=== PATIENT | male | born 1965 | race Caucasian/White ===

== ENCOUNTER 2023-09-19 00:08 | Emergency (ER) | payer OTHER, SELFPAY ==
--- NOTE | ~2023-09-19 | XR_ITS ---
EXAMINATION: XR CHEST CLINICAL INFORMATION: Shortness of breath COMPARISON: None available. TECHNIQUE: 2 views of the chest were obtained. FINDINGS: Lung volumes are symmetric. No focal consolidation is seen. Mildly coarsened appearance of the perihilar interstitium. No evidence of pneumothorax, pleural effusion, or overt pulmonary edema. The cardiomediastinal contour is unremarkable. No acute osseous findings are seen. XR/XR chest 2V IMPRESSION: No focal consolidation. Mildly coarsened appearance of the perihilar interstitium may reflect airways disease.
[2023-09-19 00:16] VITALS: BP 148/91; PULSE 88; PULSE 91; RESP 19; O2SAT 100; BMI 35.2
--- NOTE | 2023-09-19 00:16 | ED.GENADULT ---
HPI - General Adult General Chief complaint: Dyspnea Stated complaint: sob Time Seen by Provider: 09/19/23 00:16 History of Present Illness HPI narrative: Patient is a 58-year-old male with a history of type 2 diabetes and a right [id number] amputation comes to the emergency room because he developed shortness of breath at around 14:00 this afternoon. He tried using his brother's inhaler to see if it would help but it did not an ultimately he called an ambulance is brought to the hospital. He does not think he has had a fever although he is felt somewhat hot and sweaty. The patient says that he has only been in this area for a few months after moving here from [place]. He had been living in [place] for a few years. He had his right leg amputation 1 year ago. He says that after he had his leg amputated his left him and so he moved to this area to live with his brother. Related Data Previous Rx's ?Medication ?Instructions ?Recorded budesonide-formoterol HFA 80 1 puff inhalation BID #10.2 grams 09/19/23 mcg-4.5 mcg/actuation aerosol inhaler Allergies Allergy/AdvReac Type Severity Reaction Status Date / Time No Known Allergies Allergy Verified 09/19/23 00:18 Review of Systems Review of Systems: Yes all other systems are reviewed and are negative [facility] Social History Social History Advance Directives: No Advance Directives Information Provided: Yes Physical Exam ED Vital Signs: Vital Signs - 24 hr 09/19/23 00:16 09/19/23 00:19 09/19/23 01:49 Temperature 97.7 F Pulse Rate 88 85 73 Respiratory Rate 19 12 16 Blood Pressure 145/70 H Pulse Oximetry 100 99 Oxygen Delivery Method Room Air Room Air 09/19/23 02:08 Temperature 97.6 F Pulse Rate 81 Respiratory Rate 12 Blood Pressure 135/70 Pulse Oximetry 97 Oxygen Delivery Method Room Air BMI result Body Mass Index 35.2 Const Other: The patient is a somewhat unkempt, chronically ill-appearing 58-year-old male who was awake and alert and does not seem in obvious distress. He does not seem in acute pain or obvious shortness breath. No increased work of breathing. HENMT Other: Face is symmetrical, mucous membranes moist Eyes Other: Pupils are round equal, conjunctivae clear Neck Other: No JVD Resp Other: Breath sounds seem fairly clear bilaterally. No definite crackles or wheeze. Cardio Rate: regular rate Rhythm: regular rhythm Heart sounds: S1 normal heart sound present and S2 normal heart sound present GI Other: Abdomen is soft and nontender Skin Other: Skin is pale and dry Neuro Other: The patient is awake and alert. Cranial nerves are grossly intact. He moves his extremities symmetrically. Extrem Other: The patient has a right leg prosthesis. The left calf is not swollen or tender. No edema. Medications Administered Discontinued Medications Generic Name Dose Route Start Last Admin Trade Name Frelevi PRN Reason Stop Dose Admin Albuterol/Ipratropium 3 ml 09/19/23 01:35 09/19/23 01:48 Albuterol/Iprat 2.5/0.5mg 3 Ml Ampul.Neb INHALE 09/19/23 01:36 3 ml ONCE ONE Administration Medical Decision Making Medical Decision Making [facility] Narrative: The patient is a 58-year-old male who comes to the emergency room complaining of shortness of breath. He tried using his brother's inhaler without much improvement and ultimately called an ambulance. Here the patient had good vital signs and he admitted that there might be some anxiety component to his presentation. His lungs seemed fairly clear, possibly some minimal wheezing. He was given a DuoNeb updraft. Labs and a chest x-ray were done. All of these are very reassuring. There is no sign of a pneumonia, congestive heart failure, acute coronary syndrome, or pulmonary embolism based on his workup. He seemed better after 1 DuoNeb updraft and I felt he was appropriate for discharge. I will send a prescription for budesonide/formoterol which he may use as an inhaler. He has not yet established a primary care doctor but I believe he is trying to get established at [facility] in [place] and he is referred there. Lab Data 09/19/23 00:41 09/19/23 00:41 Labs: Lab Results 09/19/23 09/19/23 09/19/23 Range/Units 00:22 00:35 00:41 WBC 9.9 (4.8-10.8) X10*3/uL RBC 5.36 (4.60-5.80) X10*6/uL Hgb 15.1 (14.0-18.0) g/dl Hct 43.5 (42.0-52.0) % MCV 81.2 (80.0-98.0) fL MCH 28.2 (27.0-33.0) pg MCHC 34.7 (31.0-36.0) g/dl RDW 13.6 (11.0-16.0) % Plt Count 279 (160-400) X10*3/uL MPV 11.1 (9.4-12.4) fL Immature Gran % (Auto) 0.3 (0.0-0.4) % Neut % (Auto) 41.7 L (45-73) % Lymph % (Auto) 47.1 H (20-40) % [place] % (Auto) 6.7 (2-11) % Eos % (Auto) 3.4 (0-4) % Baso % (Auto) 0.8 (0-2) % Lymph # (Auto) 4.7 (1.2-4.9) X10*3/uL [place] # (Auto) 0.7 (0.1-1.2) X10*3/uL Eos # (Auto) 0.3 (0.0-0.4) X10*3/uL Baso # (Auto) 0.1 (0.0-0.2) X10*3/uL Abs Immat Gran (auto) 0.03 (0.00-0.03) X10*3/uL Absolute Neuts (auto) 4.1 (2.0-8.3) x10*3/uL Absolute Nucleated RBC 0.000 (0.0-0.012) X10*3/uL Nucleated RBC % (auto) 0.0 (0.0-0.2) /100WBC PT 11.0 L (11.1-13.3) SEC INR 0.9 (0.9-1.1) D-Dimer High Sensitivty < 150 NG/ML Sodium 134 L (135-145) mmol/L Potassium 3.6 (3.3-5.1) mmol/L Chloride 102 (96-108) mmol/L Carbon Dioxide 21 L (22-29) mmol/L Anion Gap 15 (12-20) BUN 11 (9-16) mg/dL Creatinine 0.97 (0.5-1.4) mg/dL Estim Creat Clear Calc 112.5 Estimated GFR > 60 POC Glucose 325 H (60-115) mg/dL Random Glucose 347 H (60-115) mg/dL Calcium 9.6 (8.4-10.2) mg/dL Magnesium 1.7 (1.6-2.6) mg/dL Total Bilirubin 0.4 (0.0-1.0) mg/dL AST 5 (5-37) U/L ALT 9 (0-40) U/L Alkaline Phosphatase 107 (39-117) U/L Troponin I High Sens < 2.7 (<3.5-35.0) ng/L C-Reactive Protein 0.40 (< or = 0.50) mg/dL B-Natriuretic Peptide 15 (<100) pg/mL Total Protein 7.2 (6.5-8.0) g/dL Albumin 4.0 (3.5-5.0) g/dL Ethyl Alcohol < 10 mg/dL Influenza Type A (PCR) NEGATIVE (Negative) Influenza Type B (PCR) NEGATIVE (Negative) RSV RNA Qual (PCR) NEGATIVE (Negative) SARS-CoV-2 RNA (RT-PCR) NEGATIVE (Negative) Independent Interpretation I performed an independent interpretation of an: EKG Interpretation: EKG at 023 shows normal sinus rhythm at 83 beats per minute. No definite acute findings. No old EKGs for comparison. Discharge Plan Discharge Clinical Impression: Shortness of breath Patient Disposition: Home, Self-Care Additional Instructions: Your testing in the emergency room today has been very reassuring. It is possible your symptoms might be from some mild degree of asthma. I have sent a prescription for an inhaler that may be helpful. The prescription has been written so that you should take 1 puff 2 times a day. However if you are feeling more short of breath you can take 1-2 puffs every 4-6 hours as needed. Please follow up with the primary care doctor. Please contact [facility] in [place] with the number provided for new doctor's appointment. Return to the emergency room if significantly worse. Prescriptions: New budesonide-formoterol 80-4.5 mcg/actuation HFA aerosol inhaler 1 puff inhalation BID Qty: 10.2 0RF Referrals: Jonnathan Gomez MD [Primary Care Provider] - (shortness of breath) Print Language: Egyptian
--- NOTE | 2023-09-19 00:18 | ECG_ITS ---
Test Reason : sob Blood Pressure : / mmHG Vent. Rate : 083 BPM Atrial Rate : 083 BPM P-R Int : 152 ms QRS Dur : 094 ms QT Int : 380 ms P-R-T Axes : 030 -37 043 degrees QTc Int : 446 ms Normal sinus rhythm Left axis deviation Low voltage QRS Abnormal ECG No previous ECGs available Referred By: Nasim Self Electronically Signed By:MARCIA MCKEON
[2023-09-19 00:19] VITALS: BP 145/70; PULSE 85; RESP 12; TEMP 36.5; O2SAT 99
[2023-09-19 00:25] LABS: Glucose, Whole Blood 325 mg/dL (60-115)
--- NOTE | 2023-09-19 00:25 | PC.NURSE ---
Dr. Self aware of poc, no new orders at this time.
[2023-09-19 00:48] LABS: Basophils Absolute Auto 0.1 X10*3/uL (0.0-0.2); Basophils Percent Auto 0.8 % (0-2); Eosinophils Absolute Auto 0.3 X10*3/uL (0.0-0.4); Eosinophils Percent Auto 3.4 % (0-4); Hematocrit 43.5 % (42.0-52.0); Hemoglobin 15.1 g/dl (14.0-18.0); Imm Gran Abs Auto 0.03 X10*3/uL (0.00-0.03); Imm Gran Pct Auto 0.3 % (0.0-0.4); Lymphocytes Absolute Auto 4.7 X10*3/uL (1.2-4.9); Lymphocytes Percent Auto 47.1 % (20-40); MANUAL DIFF FLAG NO; Mean Corpuscular HGB Conc 34.7 g/dl (31.0-36.0); Mean Corpuscular Hemoglobin 28.2 pg (27.0-33.0); Mean Corpuscular Volume 81.2 fL (80.0-98.0); Mean Platelet Volume 11.1 fL (9.4-12.4); Monocytes Absolute Auto 0.7 X10*3/uL (0.1-1.2); Monocytes Percent Auto 6.7 % (2-11); Neutrophils Absolute Auto 4.1 x10*3/uL (2.0-8.3); Neutrophils Percent Auto 41.7 % (45-73); Platelet Count 279 X10*3/uL (160-400); Red Blood Count 5.36 X10*6/uL (4.60-5.80); Red Cell Distribution Width 13.6 % (11.0-16.0); White Blood Count 9.9 X10*3/uL (4.8-10.8)
[2023-09-19 00:57] LABS: INTERNATIONAL NORM RATIO 0.9 (0.9-1.1)
[2023-09-19 01:08] LABS: Alanine Aminotransferase 9 U/L (0-40); Alkaline Phosphatase 107 U/L (39-117); Anion Gap 15 (12-20); Aspartate Amino Transferase 5 U/L (5-37); B Type Natriuretic Peptide 15 pg/mL (<100); Bilirubin Total 0.4 mg/dL (0.0-1.0); Blood Urea Nitrogen 11 mg/dL (9-16); Calcium 9.6 mg/dL (8.4-10.2); Carbon Dioxide 21 mmol/L (22-29); Chloride 102 mmol/L (96-108); Creatinine Clr Calc Pharmacy 112.5; Estimated Glomerular Filt Rate > 60; Ethanol < 10 mg/dL; Glucose Random 347 mg/dL (60-115); Magnesium 1.7 mg/dL (1.6-2.6); Potassium 3.6 mmol/L (3.3-5.1); Sodium 134 mmol/L (135-145); Total Protein 7.2 g/dL (6.5-8.0)
[2023-09-19 01:15] LABS: Troponin-I High Sensitivity < 2.7 ng/L (<3.5-35.0)
[2023-09-19 01:25] LABS: Influenza A PCR NEGATIVE (Negative); Influenza B PCR NEGATIVE (Negative); Resp Syncy Virus RNA Qual PCR NEGATIVE (Negative); SARS COV2 PCR INHOUSE NEGATIVE (Negative)
[2023-09-19 01:44] LABS: D Dimer High Sensitivity < 150 NG/ML
[2023-09-19] MEDS: Albuterol/Iprat 2.5/0.5MG 3 ML AMPUL.NEB INHALE (01:48)
[2023-09-19 01:49] VITALS: PULSE 73; RESP 16; O2SAT 100
[2023-09-19 02:08] VITALS: BP 135/70; PULSE 81; RESP 12; TEMP 36.4; O2SAT 97
[2023-09-19 04:13] VITALS: BP 135/70; PULSE 72; RESP 15; TEMP 36.8; O2SAT 97
== END 2023-09-19 04:14 | disposition home or self-care (01) ==
PROVIDERS: Emergency Provider Emergency Medicine; PCP Internal Medicine
DX: R06.02 Shortness of breath (principal); E11.9 Type 2 diabetes mellitus without complications; Z89.511 Acquired absence of right leg below knee; Z79.899 Other long term (current) drug therapy
CPT/HCPCS: 0241U; 36415; 71046; 80053; 80307; 82947; 83735; 83880; 84484; 85025; 85379; 85610; 86140; 93005; 94640; 99284; 99285

== ENCOUNTER → 2023-09-19 00:18 | Outpatient (BNV) | payer OTHER, SELFPAY | PROVIDERS: Emergency Provider Emergency Medicine; PCP Internal Medicine; Visit Provider Internal Medicine | DX: R06.02 Shortness of breath (principal) | CPT/HCPCS: 93010 ==